=== PATIENT | male | born 1980 | race African-American/Black ===

== ENCOUNTER 2021-05-22 20:20 | Emergency (ER) | payer OTHER, MEDICAID ==
[~2021-05-22] VITALS: Ht 172.7 cm; Wt 83.0 kg
[2021-05-22] MEDS ORDERED: FLEXERIL PO (21:01)
[2021-05-22 21:21] VITALS: BP 171/103
== END 2021-05-22 21:21 | disposition home or self-care (01) ==
LOC: M.ERS 20:20
DX: S16.1XXA Strain of muscle, fascia and tendon at neck level, initial encounter (principal); V89.2XXA Person injured in unspecified motor-vehicle accident, traffic, initial encounter; Y93.89 Activity, other specified; Y92.488 Other paved roadways as the place of occurrence of the external cause; Y99.8 Other external cause status